=== PATIENT | male | born 1955 | race Caucasian/White ===

== ENCOUNTER 2018-04-12 11:53 | Emergency (ER) | payer MEDICARE, OTHER ==
[~2018-04-12] VITALS: Ht 172.7 cm; Wt 65.5 kg
[~2018-04-12 11:53] MED LIST: ACET325T33 PO; CIPR500T4 PO; IBUP800T48 PO; METR500T PO
[2018-04-12 11:56] VITALS: BP 113/66; PULSE 115; RESP 18; Ht 172.7 cm; Wt 65.5 kg
[2018-04-12] MEDS ORDERED: KETOROLAC 60 MG INJ IM STA (12:37)
[2018-04-12] MEDS ORDERED: HYDR-4011 PO (12:43)
[2018-04-12] MEDS ORDERED: CYCL10TA7 PO (12:43)
[2018-04-12] MEDS ORDERED: MED4DP PO (12:43)
[2018-04-12] MEDS ORDERED: NAPR-985 PO (12:43)
[2018-04-12] MEDS ORDERED: DEXAMETHASONE 10 MG/ML 1 ML INJ IM ONE (13:00)
--- NOTE | 2018-04-12 14:30 | ERD ---
ER Documentation Chief Complaint Chief Complaint pt bib self with c/o left leg pain since yesterday, unk injury HPI 63-year-old male presenting with back pain. Patient states that has happened since yesterday he has unknown injury. He states that he did not have any fall and it hurts worse with walking. He denies any weakness. Denies any changes to urination or bowel movement. Denies medical problems. NKDA. Surgical history denies. Social history denies ROS All systems reviewed and are negative except as per history of present illness. Medications Home Meds Active Scripts Cyclobenzaprine Hcl* (Cyclobenzaprine Hcl*) 10 Mg Tablet, 10 MG PO TID, #15 TAB Prov:REG RAMÍREZ PA-C 04/12/18 Methylprednisolone* (Medrol* DOSE PACK) 4 Mg/Dose-Pack Tab.ds.pk, 4 MG PO . DIRECTED, #1 PACKET Prov:REG RAMÍREZ PA-C 04/12/18 Naproxen* (Naprosyn*) 500 Mg Tablet, 500 MG PO BID PRN for PAIN AND/OR INFLAMMATION, #30 TAB Prov:REG RAMÍREZ PA-C 04/12/18 Hydrocodone/Acetaminophen ([place] 5-325 Tablet) 1 Each Tablet, 1 TAB PO Q6H PRN for PAIN, #7 TAB Prov:REG RAMÍREZ PA-C 04/12/18 Metronidazole* (Flagyl*) 500 Mg Tablet, 500 MG PO TID for 7 Days, TAB Prov:FEDERICA ARENAS PA-C 02/09/16 Ciprofloxacin Hcl* (Ciprofloxacin Hcl*) 500 Mg Tablet, 500 MG PO BID for 7 Days, TAB Prov:FEDERICA ARENAS PA-C 02/09/16 Ibuprofen* (Motrin*) 800 Mg Tab, 800 MG PO Q6H PRN for PAIN AND OR ELEVATED TEMP, #30 TAB Prov:REG RAMÍREZ PA-C 01/05/15 Acetaminophen* (Tylenol*) 325 Mg Tablet, 2 TAB PO Q8 PRN for PAIN AND OR ELEVATED TEMP, #20 TAB Prov:REG RAMÍREZ PA-C 01/05/15 Allergies Allergies: Coded Allergies: No Known Allergy (Unverified , 02/10/16) PMhx/Soc History of Surgery: No Anesthesia Reaction: No Hx Neurological Disorder: No Hx Respiratory Disorders: No Hx Cardiac Disorders: Yes (htn) Hx Psychiatric Problems: No Hx Miscellaneous Medical Probl: No Hx Alcohol Use: Yes (daily) Hx Substance Use: Yes (marijuana) Hx Tobacco Use: No Smoking Status: Former smoker FmHx Family History: No diabetes, No coronary disease, No other Physical Exam Vitals Vital Signs Date Temp Pulse Resp B/P (MAP) Pulse Ox O2 O2 Flow FiO2 Time Delivery Rate 04/12/18 99.4 115 18 113/66 96 11:56 (82) Physical Exam GENERAL: The patient is well-appearing, well-nourished, in no acute distress CHEST: Clear to auscultation bilaterally. There are no rales, wheezes or rhonchi. HEART: Regular rate and rhythm. No murmurs, clicks, rubs or gallops. No S3 or S4. ABDOMEN:Soft, nontender and nondistended. Good bowel sounds. No rebound or guarding. No gross peritonitis. No gross organomegaly or masses. No Diallo sign or McBurney point tenderness. BACK: No midline or flank tenderness. Tender to palpation over left paraspinous muscles extending down left buttock. EXTREMITIES: Equal pulses bilaterally. There is no peripheral clubbing, cyanosis or edema. No focal swelling or erythema. Full range of motion. Grossly neurovascularly intact. NEUROLOGIC: Alert and oriented. Cranial nerves II through XII intact. Motor strength in all 4 extremities with 5 out of 5 strength. Sensation grossly intact. Normal speech and gait. Babinski negative. DTR 2+ throughout. SKIN: There is no apparent rash or petechiae. The skin is warm and dry. Results 24 hrs Current Medications Medications Dose Sig/Torie Start Time Status Last (Trade) Ordered Route PRN Stop Time Admin Dose Reason Admin 10 mg ONCE ONCE 04/12/18 DC 04/12/18 Dexamethasone IM 13:00 12:52 (Decadron) 04/12/18 13:01 Ketorolac 60 mg ONCE STAT 04/12/18 DC 04/12/18 Tromethamine IM 12:37 12:52 (Toradol) 04/12/18 12:38 Procedures/MDM ER course: Toradol and Decadron given ED. Patient is driving so no other medication was given. MDM: 63-year-old male presenting with back pain relating to sciatica pain. I have low suspicion for acute fracture dislocation. I have low suspicion for nerve deficit. Patient is discharged with supportive medications. I have low suspicion for cauda equina, discitis or epidural abscess. Patient was told if symptoms change or worsen to return immediately to the ER. All questions answered at discharge Departure Diagnosis: Primary Impression: Back pain with sciatica Condition: Stable Patient Instructions: Back Pain W/ Sciatica Referrals: [facility] YOU HAVE RECEIVED A MEDICAL SCREENING EXAM AND THE RESULTS INDICATE THAT YOU DO NOT HAVE A CONDITION THAT REQUIRES URGENT TREATMENT IN THE EMERGENCY DEPARTMENT. FURTHER EVALUATION AND TREATMENT OF YOUR CONDITION CAN WAIT UNTIL YOU ARE SEEN IN YOUR DOCTORS OFFICE WITHIN THE NEXT 1-2 DAYS. IT IS YOUR RESPONSIBILITY TO MAKE AN APPOINTMENT FOR FOLOW-UP CARE. IF YOU HAVE A PRIMARY DOCTOR --you should call your primary doctor and schedule an appointment IF YOU DO NOT HAVE A PRIMARY DOCTOR YOU CAN CALL OUR PHYSICIAN REFERRAL HOTLINE AT IF YOU CAN NOT AFFORD TO SEE A PHYSICIAN YOU CAN CHOSE FROM THE FOLLOWING [facility] CLINICS [facility] [address] [facility] [address] [facility] [facility] [address] [facility] [facility] [address] [facility] [address] [facility] [facility]. [address] Additional Instructions: FOLLOW UP WITH YOUR PRIMARY CARE PHYSICIAN TOMORROW.Return to this facility if you are not improving as expected. REG RAMÍREZ PA-C Apr 12, 2018 14:30
[2018-04-30] MEDS ORDERED: TRAM50TA2 PO (12:53)
[2018-04-30] MEDS ORDERED: IBUP-1542 PO (12:53)
== END 2018-04-12 13:13 | disposition home or self-care (01) ==
LOC: FTE 11:53
DX: M54.40 Lumbago with sciatica, unspecified side (principal); I10 Essential (primary) hypertension; Z87.891 Personal history of nicotine dependence
CPT/HCPCS: 96372; 99284; J1100; J1885

== ENCOUNTER 2018-07-15 09:13 | Emergency (ER) | payer MEDICARE, OTHER ==
[~2018-07-15] VITALS: Ht 172.7 cm; Wt 62.0 kg
[~2018-07-15 09:13] MED LIST changes: +CYCL10TA7 PO; +HYDR-4011 PO; +IBUP-1542 PO; +MED4DP PO; +NAPR-985 PO; +TRAM50TA2 PO
[2018-07-15 09:17] VITALS: Ht 172.7 cm; Wt 62.0 kg
[2018-07-15] MEDS ORDERED: LIDOCAINE 1% (MPF) 5 ML VIAL INJ ONE (10:00)
[2018-07-15] MEDS ORDERED: NAPR-985 PO (11:18)
[2018-07-15] MEDS ORDERED: HYDR-4011 PO (11:18)
[2018-07-15] MEDS ORDERED: AMOX1TAB10 PO (11:18)
[2018-07-15 11:32] VITALS: BP 143/88; PULSE 95; RESP 20
--- NOTE | 2018-07-15 15:59 | ERD ---
ER Documentation Chief Complaint Chief Complaint pt is bib self with c/o head lac since this am, arrived with dressing HPI 63-year-old male presenting with laceration to right side of his face. Patient tripped on his bedding and fell on the bathroom floor. No loss of conscious. He has no pain with eye movement denies any vision changes. Denies headache or vomiting. Has not taken medications. Denies medical problems. NKDA. Surgical history right eye surgery cataract surgery. Social history denies ROS All systems reviewed and are negative except as per history of present illness. Medications Home Meds Active Scripts Amoxicillin/Potassium Clav (Amox-Clav 875-125 mg Tablet) 875-125 mg Tab, 1 TAB PO BID for 7 Days, #14 TAB Prov:REG RAMÍREZ PA-C 07/15/18 Naproxen* (Naprosyn*) 500 Mg Tablet, 500 MG PO BID PRN for PAIN AND/OR INFLAMMATION, #30 TAB Prov:REG RAMÍREZ PA-C 07/15/18 Hydrocodone/Acetaminophen ([place] 5-325 Tablet) 1 Each Tablet, 1 TAB PO Q6H PRN for PAIN, #7 TAB Prov:REG RAMÍREZ PA-C 07/15/18 Tramadol HCl (Tramadol HCl) 50 Mg Tablet, 50 MG PO Q6 PRN for PAIN, #7 TAB Prov:ROSALVA SALINAS MD 04/30/18 Ibuprofen* (Motrin*) 600 Mg Tab, 600 MG PO Q6H PRN for PAIN AND OR ELEVATED TEMP, #30 TAB Prov:ROSALVA SALINAS MD 04/30/18 Cyclobenzaprine Hcl* (Cyclobenzaprine Hcl*) 10 Mg Tablet, 10 MG PO TID, #15 TAB Prov:REG RAMÍREZ PA-C 04/12/18 Methylprednisolone* (Medrol* DOSE PACK) 4 Mg/Dose-Pack Tab.ds.pk, 4 MG PO . DIRECTED, #1 PACKET Prov:RGE RAMÍREZ PA-C 04/12/18 Naproxen* (Naprosyn*) 500 Mg Tablet, 500 MG PO BID PRN for PAIN AND/OR INFLAMMATION, #30 TAB Prov:REG RAMÍREZ PA-C 04/12/18 Hydrocodone/Acetaminophen ([place] 5-325 Tablet) 1 Each Tablet, 1 TAB PO Q6H PRN for PAIN, #7 TAB Prov:REG RAMÍREZ PA-C 04/12/18 Metronidazole* (Flagyl*) 500 Mg Tablet, 500 MG PO TID for 7 Days, TAB Prov:FEDERICA ARENAS PA-C 02/09/16 Ciprofloxacin Hcl* (Ciprofloxacin Hcl*) 500 Mg Tablet, 500 MG PO BID for 7 Days, TAB Prov:FEDERICA ARENAS PA-C 02/09/16 Ibuprofen* (Motrin*) 800 Mg Tab, 800 MG PO Q6H PRN for PAIN AND OR ELEVATED TEMP, #30 TAB Prov:REG RAMÍREZ PA-C 01/05/15 Acetaminophen* (Tylenol*) 325 Mg Tablet, 2 TAB PO Q8 PRN for PAIN AND OR ELEVATED TEMP, #20 TAB Prov:REG RAMÍREZ PA-C 01/05/15 Allergies Allergies: Coded Allergies: No Known Allergy (Unverified , 02/10/16) PMhx/Soc History of Surgery: Yes (right posterior knee cyst removal) Anesthesia Reaction: No Hx Neurological Disorder: No Hx Respiratory Disorders: No Hx Cardiac Disorders: Yes (htn) Hx Psychiatric Problems: No Hx Miscellaneous Medical Probl: Yes (right cataract surgery, chronic back pain) Hx Alcohol Use: Yes Hx Substance Use: Yes (marijuana last used yesterday) Hx Tobacco Use: No Smoking Status: Former smoker FmHx Family History: No diabetes, No coronary disease, No other Physical Exam Vitals Vital Signs Date Temp Pulse Resp B/P (MAP) Pulse Ox O2 O2 Flow FiO2 Time Delivery Rate 07/15/18 95 20 143/88 98 Room Air 11:32 (106) 07/15/18 98.4 88 18 147/86 98 09:17 (106) Physical Exam GENERAL: The patient is well-appearing, well-nourished, in no acute distress HEENT: Atraumatic. Conjunctivae are pink. Pupils equal, round, and reactive to light. There is no scleral icterus. Tympanic membranes clear bilaterally. Oropharynx clear. No nystagmus or photophobia.. CHEST: Clear to auscultation bilaterally. There are no rales, wheezes or rhonchi. HEART: Regular rate and rhythm. No murmurs, clicks, rubs or gallops. NEUROLOGIC: Alert and oriented. Cranial nerves II through XII intact. Motor strength in all 4 extremities with 5 out of 5 strength. Sensation grossly intact. Normal speech and gait. SKIN: 1 cm linear laceration over the lateral aspect of the right eyebrow. No active bleeding. Stents of bruising noted around the right eye. Results 24 hrs Current Medications Medications Dose Sig/Torie Start Time Status Last (Trade) Ordered Route PRN Stop Time Admin Dose Reason Admin Lidocaine 5 ml ONCE ONCE 07/15/18 DC (Xylocaine INJ 10:00 1% (Mpf)) 07/15/18 10:01 Procedures/MDM DIAGNOSTIC IMAGING REPORT Patient: ANNABELLE BENITO : 1955 Age: 63 Sex: M MR #: [id number] DOS: 07/15/18 0932 Ordering MD: BENNY RAMÍREZ PA-C Location: [facility] Room/Bed: PROCEDURE: CT maxillofacial bones CLINICAL INDICATION: Right facial bruising status post fall TECHNIQUE: A CT of the facial bones was performed on a multi-slice CT scanner utilizing high-resolution axial images. Sagittal, coronal, and multiplanar reformatted images were made. Additionally, 3-D reformatted images were made. The CTDIvol is 29.44 mGy and the DLP is 611.64 mGy-cm. DICOM images are available. One or more of the following dose reduction techniques were utilized: 1.) Automated exposure control 2.) Adjustment of the mA +/- kV according to patient's size 3.) Use of iterative reconstruction technique. COMPARISON: None. FINDINGS: Mildly depressed fractures of the anterior and lateral polanco of the right maxillary sinus are identified. Small amount of soft tissue gas is seen along the posterior aspect of the right maxillary sinus. There is age indeterminate nondisplaced nasal bone fracture with mild deformity with no significant surrounding soft tissue swelling. Large Heidi cells are seen bilaterally with narrowing of the ostiomeatal units. There is mild mucosal thickening in the right maxillary sinus. Trace mucosal thickening is seen in the ethmoid air cells. The remainder of the paranasal sinuses are clear. The orbits, as visualized, appear intact. moderately severe degenerative changes are seen in bilateral TMJs. IMPRESSION: 1. Mildly displaced anterior and lateral polanco of the right maxillary sinus with overlying soft tissue swelling and surrounding subcutaneous emphysema. 2. Probable chronic nondisplaced nasal bone fracture/deformity. Laceration Repair by me: Anesthesia: 1% lidocaine locally Location: right eyebrow Tendon/Joint/Nerves: No injury Foreign body: None detected after copious irrigation and exploration Technique: 2 5.0 N Simple Interrupted Sutures Complexity: No subcutaneous sutures/mucosal repair/edge excision Post Closure Length: 1 cm Patient's bleeding was easily controlled in the department and there is no indication of anemia. No evidence of compartment syndrome, neurologic injury, vascular injury, open joint, tendon laceration, or foreign body. Patient is appropriate for outpatient follow up. 48 hour wound check. Scar minimization instructions given. MDM: 63-year-old male presenting with a head laceration. I have low suspicion for intracranial hemorrhage or neuro deficit. There is a fracture noted on the CT scan and patient is recommended to follow-up with [facility] surgeon. Given there is some communication between the sinuses and the fracture patient will be placed on antibiotics to prophylax against a possible ocular infection. Patient is told if symptoms change or worsen to return immediately to the ER. All questions answered at discharge Departure Diagnosis: Primary Impression: Facial fracture Additional Impression: Laceration Condition: Stable Patient Instructions: Facial Fracture, Laceration, Face (Skin Glue) Referrals: [facility] YOU HAVE RECEIVED A MEDICAL SCREENING EXAM AND THE RESULTS INDICATE THAT YOU DO NOT HAVE A CONDITION THAT REQUIRES URGENT TREATMENT IN THE EMERGENCY DEPARTMENT. FURTHER EVALUATION AND TREATMENT OF YOUR CONDITION CAN WAIT UNTIL YOU ARE SEEN IN YOUR DOCTORS OFFICE WITHIN THE NEXT 1-2 DAYS. IT IS YOUR RESPONSIBILITY TO MAKE AN APPOINTMENT FOR FOLOW-UP CARE. IF YOU HAVE A PRIMARY DOCTOR --you should call your primary doctor and schedule an appointment IF YOU DO NOT HAVE A PRIMARY DOCTOR YOU CAN CALL OUR PHYSICIAN REFERRAL HOTLINE AT IF YOU CAN NOT AFFORD TO SEE A PHYSICIAN YOU CAN CHOSE FROM THE FOLLOWING [facility] [address] [facility] [address] [facility] [address] [facility] [address] [facility]. [facility] [address] [facility]. [facility] [address] Additional Instructions: FOLLOW UP WITH YOUR PRIMARY CARE PHYSICIAN TOMORROW.Return to this facility if you are not improving as expected. REG RAMÍREZ PA-C Jul 15, 2018 15:59
== END 2018-07-15 11:32 | disposition home or self-care (01) ==
LOC: FTE 09:13
DX: S02.40CA Maxillary fracture, right side, initial encounter for closed fracture (principal); I10 Essential (primary) hypertension; W01.0XXA Fall on same level from slipping, tripping and stumbling without subsequent striking against object, initial encounter; Y92.9 Unspecified place or not applicable; Z87.891 Personal history of nicotine dependence
CPT/HCPCS: 70486

== ENCOUNTER → 2018-07-24 | Emergency (ER) | payer MEDICARE, OTHER ==
[~2018-07-24] VITALS: Ht 157.5 cm; Wt 65.2 kg
[~2018-07-24] MED LIST changes: +AMOX1TAB10 PO
[2018-07-24 13:39] VITALS: Ht 157.5 cm; Wt 65.2 kg
--- NOTE | 2018-07-24 15:07 | ERD ---
ER Documentation Chief Complaint Chief Complaint Patient here for suture removal HPI 63-year-old male presents for suture removal of a facial laceration about a week ago. Patient had the laceration repaired here in the ER. Patient states that he finished his antibiotic course. Denies any fevers or chills. Otherwise no other modifying factors noted. ROS All systems reviewed and are negative except as per history of present illness. Medications Home Meds Active Scripts Amoxicillin/Potassium Clav (Amox-Clav 875-125 mg Tablet) 875-125 mg Tab, 1 TAB PO BID for 7 Days, #14 TAB Prov:REG RAMÍREZ PA-C 07/15/18 Naproxen* (Naprosyn*) 500 Mg Tablet, 500 MG PO BID PRN for PAIN AND/OR INFLAMMATION, #30 TAB Prov:REG RAMÍREZ PA-C 07/15/18 Hydrocodone/Acetaminophen ([place] 5-325 Tablet) 1 Each Tablet, 1 TAB PO Q6H PRN for PAIN, #7 TAB Prov:REG RAMÍREZ PA-C 07/15/18 Tramadol HCl (Tramadol HCl) 50 Mg Tablet, 50 MG PO Q6 PRN for PAIN, #7 TAB Prov:ROSALVA SALINAS MD 04/30/18 Ibuprofen* (Motrin*) 600 Mg Tab, 600 MG PO Q6H PRN for PAIN AND OR ELEVATED TEMP, #30 TAB Prov:ROSALVA SALINAS MD 04/30/18 Cyclobenzaprine Hcl* (Cyclobenzaprine Hcl*) 10 Mg Tablet, 10 MG PO TID, #15 TAB Prov:REG RAMÍREZ PA-C 04/12/18 Methylprednisolone* (Medrol* DOSE PACK) 4 Mg/Dose-Pack Tab.ds.pk, 4 MG PO . DIRECTED, #1 PACKET Prov:REG RAMÍREZ PA-C 04/12/18 Naproxen* (Naprosyn*) 500 Mg Tablet, 500 MG PO BID PRN for PAIN AND/OR INFLAMMATION, #30 TAB Prov:REG RAMÍREZ PA-C 04/12/18 Hydrocodone/Acetaminophen ([place] 5-325 Tablet) 1 Each Tablet, 1 TAB PO Q6H PRN for PAIN, #7 TAB Prov:REG RAMÍREZ PA-C 04/12/18 Metronidazole* (Flagyl*) 500 Mg Tablet, 500 MG PO TID for 7 Days, TAB Prov:FEDERICA ARENAS PA-C 02/09/16 Ciprofloxacin Hcl* (Ciprofloxacin Hcl*) 500 Mg Tablet, 500 MG PO BID for 7 Days, TAB Prov:FEDERICA ARENAS PA-C 02/09/16 Ibuprofen* (Motrin*) 800 Mg Tab, 800 MG PO Q6H PRN for PAIN AND OR ELEVATED TEMP, #30 TAB Prov:REG RAMÍREZ PA-C 01/05/15 Acetaminophen* (Tylenol*) 325 Mg Tablet, 2 TAB PO Q8 PRN for PAIN AND OR ELEVATED TEMP, #20 TAB Prov:REG RAMÍREZ PA-C 01/05/15 Allergies Allergies: Coded Allergies: No Known Allergy (Unverified , 02/10/16) PMhx/Soc History of Surgery: Yes (right posterior knee cyst removal) Anesthesia Reaction: No Hx Neurological Disorder: No Hx Respiratory Disorders: No Hx Cardiac Disorders: Yes (htn) Hx Psychiatric Problems: No Hx Miscellaneous Medical Probl: Yes (right cataract surgery, chronic back pain) Hx Alcohol Use: Yes Hx Substance Use: Yes (marijuana last used yesterday) Hx Tobacco Use: No FmHx Family History: No coronary disease Physical Exam Vitals Vital Signs Date Temp Pulse Resp B/P (MAP) Pulse Ox O2 O2 Flow FiO2 Time Delivery Rate 07/24/18 99.6 70 20 133/79 97 13:39 (97) Physical Exam Const: No acute distress Head: Left face with some bruising noted Eyes: Normal Conjunctiva ENT: Normal External Ears, Nose and Mouth. Neck: Full range of motion. No meningismus. Resp: Clear to auscultation bilaterally Cardio: Regular rate and rhythm, no murmurs Skin: Left face left eyebrow laceration about 1 cm with 2 stitches noted, clean dry and intact Ext: No cyanosis, or edema Neur: Awake and alert Psych: Normal Mood and Affect Procedures/MDM Suture Removal by me: Sutures removed with tweezers and scissors without incident. Wound shows no evidence of infection, foreign body, neurologic injury, vascular injury, open joint or tendon laceration. Patient to follow up PRN. Medical Decision Making: Patient presents for suture removal over the left side of the face that was repaired in the ER here about a week ago. Sutures were removed, see procedure note above Prescription(s): None Patient advised to follow up with PCP in 1-2 days. Patient advised to return to ED for new or worsening symptoms. Patient stable on discharge from the ED. Disclaimer: Inadvertent spelling and grammatical errors are likely due to EHR/dictation software use and do not reflect on the overall quality of patient care. Also, please note that the electronic time recorded on this note does not necessarily reflect the actual time of the patient encounter. Departure Diagnosis: Primary Impression: Encounter for removal of sutures Condition: Fair Patient Instructions: Suture Removal, No Complication Referrals: [facility] (PCP) Additional Instructions: Call your primary care doctor TOMORROW for an appointment during the next 1-2 days.See the doctor sooner or return here if your condition worsens before your appointment time. DONNELL MAYA DO July 24, 2018 15:07
[2018-07-24 15:10] VITALS: BP 133/79; PULSE 88; RESP 20
== END | disposition home or self-care (01) ==
LOC: FTE 13:33
DX: Z48.02 Encounter for removal of sutures (principal); I10 Essential (primary) hypertension
CPT/HCPCS: 99281

== ENCOUNTER 2018-10-07 06:27 | Emergency (ER) | payer MEDICARE, OTHER ==
[~2018-10-07] VITALS: Ht 172.7 cm; Wt 63.0 kg
[2018-10-07 06:29] VITALS: Ht 172.7 cm; Wt 63.0 kg
[2018-10-07] MEDS ORDERED: NAPR-985 PO (07:49)
[2018-10-07 08:09] VITALS: BP 141/69; PULSE 81; RESP 18
--- NOTE | 2018-10-07 08:42 | ERD ---
ER Documentation Chief Complaint Chief Complaint lt leg pain x 2 days HPI 63-year-old male presenting with pain to his left leg. Patient states is been going for the last 2 days. This located along the lateral aspect of the left calf. He has had no recent falls or injuries. Denies any numbness or tingling. Has not taken medications for the pain. Denies any weakness. Patient's pain is worse with walking. Medical history is hypertension. NKDA. Surgical history denies. Social history smokes marijuana ROS All systems reviewed and are negative except as per history of present illness. Medications Home Meds Active Scripts Naproxen* (Naprosyn*) 500 Mg Tablet, 500 MG PO BID PRN for PAIN AND/OR INFLAMMATION, #30 TAB Prov:REG RAMÍREZ PA-C 10/07/18 Amoxicillin/Potassium Clav (Amox-Clav 875-125 mg Tablet) 875-125 mg Tab, 1 TAB PO BID for 7 Days, #14 TAB Prov:REG RAMÍREZ PA-C 07/15/18 Naproxen* (Naprosyn*) 500 Mg Tablet, 500 MG PO BID PRN for PAIN AND/OR I NFLAMMATION, #30 TAB Prov:REG RAMÍREZ PA-C 07/15/18 Hydrocodone/Acetaminophen ([place] 5-325 Tablet) 1 Each Tablet, 1 TAB PO Q6H PRN for PAIN, #7 TAB Prov:REG RAMÍREZ PA-C 07/15/18 Tramadol HCl (Tramadol HCl) 50 Mg Tablet, 50 MG PO Q6 PRN for PAIN, #7 TAB Prov:ROSALVA SALINAS MD 04/30/18 Ibuprofen* (Motrin*) 600 Mg Tab, 600 MG PO Q6H PRN for PAIN AND OR ELEVATED TEMP, #30 TAB Prov:ROSALVA SALINAS MD 04/30/18 Cyclobenzaprine Hcl* (Cyclobenzaprine Hcl*) 10 Mg Tablet, 10 MG PO TID, #15 TAB Prov:REG RAMÍREZ PA-C 04/12/18 Methylprednisolone* (Medrol* DOSE PACK) 4 Mg/Dose-Pack Tab.ds.pk, 4 MG PO . DIRECTED, #1 PACKET Prov:REG RAMÍREZ PA-C 04/12/18 Naproxen* (Naprosyn*) 500 Mg Tablet, 500 MG PO BID PRN for PAIN AND/OR INFLAMMATION, #30 TAB Prov:REG RAMÍREZ PA-C 04/12/18 Hydrocodone/Acetaminophen ([place] 5-325 Tablet) 1 Each Tablet, 1 TAB PO Q6H PRN for PAIN, #7 TAB Prov:REG RAMÍREZ PA-C 04/12/18 Metronidazole* (Flagyl*) 500 Mg Tablet, 500 MG PO TID for 7 Days, TAB Prov:FEDERICA ARENAS PA-C 02/09/16 Ciprofloxacin Hcl* (Ciprofloxacin Hcl*) 500 Mg Tablet, 500 MG PO BID for 7 Days, TAB Prov:FEDERICA ARENAS PA-C 02/09/16 Ibuprofen* (Motrin*) 800 Mg Tab, 800 MG PO Q6H PRN for PAIN AND OR ELEVATED TEMP, #30 TAB Prov:REG RAMÍREZ PA-C 01/05/15 Acetaminophen* (Tylenol*) 325 Mg Tablet, 2 TAB PO Q8 PRN for PAIN AND OR ELEVATED TEMP, #20 TAB Prov:REG RAMÍREZ PA-C 01/05/15 Allergies Allergies: Coded Allergies: No Known Allergy (Unverified , 10/07/18) PMhx/Soc History of Surgery: Yes (right posterior knee cyst removal) Anesthesia Reaction: No Hx Neurological Disorder: No Hx Respiratory Disorders: No Hx Cardiac Disorders: Yes (htn) Hx Psychiatric Problems: No Hx Miscellaneous Medical Probl: Yes (right cataract surgery, chronic back pain) Hx Alcohol Use: Yes (social) Hx Substance Use: Yes (marijuana ) Hx Tobacco Use: Yes Smoking Status: Former smoker FmHx Family History: No diabetes, No coronary disease, No other Physical Exam Vitals Vital Signs Date Temp Pulse Resp B/P (MAP) Pulse Ox O2 O2 Flow FiO2 Time Delivery Rate 10/07/18 98.0 81 18 141/69 98 Room Air 08:09 (93) 10/07/18 97.7 90 18 146/79 98 06:29 (101) Physical Exam GENERAL: The patient is well-appearing, well-nourished, in no acute distress CHEST: Clear to auscultation bilaterally. There are no rales, wheezes or rhonchi. HEART: Regular rate and rhythm. No murmurs, clicks, rubs or gallops. EXTREMITIES: Equal pulses bilaterally. There is no peripheral clubbing, cyanosis or edema. No focal swelling or erythema. Full range of motion. Grossly neurovascularly intact. NEUROLOGIC: Alert and oriented. Cranial nerves II through XII intact. Motor strength in all 4 extremities with 5 out of 5 strength. Sensation grossly intact. Normal speech and gait. SKIN: There is no apparent rash or petechiae. The skin is warm and dry. Procedures/MDM DIAGNOSTIC IMAGING REPORT Patient: ANNABELLE BENITO : 1955 Age: 63 Sex: M MR #: [id number] DOS: 10/07/18 0651 Ordering MD: BENNY RAMÍREZ PA-C Location: [facility] Room/Bed: PROCEDURE: US left lower extremity Venous. CLINICAL INDICATION: Left leg pain TECHNIQUE: Multiple sonographic images of the left lower extremity deep venous system was obtained utilizing grayscale, color-flow, compressive sonography and doppler imaging with augmentation. COMPARISON: None. FINDINGS: There is normal compressibility and flow within the left common femoral, deep femoral, superficial femoral, posterior tibial, peroneal and popliteal veins. IMPRESSION: No sonographic evidence for deep venous thrombosis of the left lower extremity. MDM: 63-year-old male presenting with left leg pain. Patient exam is non- concerning. I have low suspicion for DVT. I have low suspicion for infectious process. I have low suspicion for compartment syndrome. I have low suspicion for bony injury. Patient likely has muscle spasm or nerve irritation. Patient is recommended to follow-up with primary care within 1 to 2 days for close evaluation. Patient is told if symptoms change to return to the ER. Patient is discharged with strict ER precautions. All questions answered at discharge Departure Diagnosis: Primary Impression: Pain of left leg Condition: Stable Patient Instructions: Muscle Strain, Extremity Referrals: [facility] YOU HAVE RECEIVED A MEDICAL SCREENING EXAM AND THE RESULTS INDICATE THAT YOU DO NOT HAVE A CONDITION THAT REQUIRES URGENT TREATMENT IN THE EMERGENCY DEPARTMENT. FURTHER EVALUATION AND TREATMENT OF YOUR CONDITION CAN WAIT UNTIL YOU ARE SEEN IN YOUR DOCTORS OFFICE WITHIN THE NEXT 1-2 DAYS. IT IS YOUR RESPONSIBILITY TO MAKE AN APPOINTMENT FOR FOLOW-UP CARE. IF YOU HAVE A PRIMARY DOCTOR --you should call your primary doctor and schedule an appointment IF YOU DO NOT HAVE A PRIMARY DOCTOR YOU CAN CALL OUR PHYSICIAN REFERRAL HOTLINE AT IF YOU CAN NOT AFFORD TO SEE A PHYSICIAN YOU CAN CHOSE FROM THE FOLLOWING [facility] [address] [facility] [address] [facility] [address] [facility] [address] [facility] [address] [facility]. [facility] [address] Additional Instructions: FOLLOW UP WITH YOUR PRIMARY CARE PHYSICIAN TOMORROW.Return to this facility if you are not improving as expected. REG RAMÍREZ PA-C Oct 07, 2018 08:42
== END 2018-10-07 08:11 | disposition home or self-care (01) ==
LOC: FTE 06:27
DX: M79.605 Pain in left leg (principal); I10 Essential (primary) hypertension; Z87.891 Personal history of nicotine dependence
CPT/HCPCS: 93971